=== PATIENT | female | born 1965 | race Caucasian/White ===

== ENCOUNTER 2017-06-15 07:01 | Day surgery (SDC) | payer BC ==
[~2017-06-15] VITALS: Ht 165.1 cm; Wt 68.0 kg
[2017-06-15] MEDS ORDERED: LASIX 40MG TABL40 MG PO (07:39)
[2017-06-15] MEDS ORDERED: ADDERALL20 MG PO (07:40)
[2017-06-15 08:24] VITALS: BP 128/95; TEMP 97.5
[2017-06-15 09:00] VITALS: BP 119/85; PULSE 77; TEMP 98
[2017-06-15 09:15] VITALS: BP 122/93; PULSE 73
[2017-06-15 09:30] VITALS: BP 115/86; PULSE 65
[2017-06-15 10:33] VITALS: BP 112/79; PULSE 79
== END 2017-06-15 09:45 | disposition home or self-care (01) ==
LOC: SDCO 07:01
DX: Z12.11 Encounter for screening for malignant neoplasm of colon (principal); Z80.42 Family history of malignant neoplasm of prostate; K64.0 First degree hemorrhoids; Z98.82 Breast implant status; I89.0 Lymphedema, not elsewhere classified; Z86.14 Personal history of Methicillin resistant Staphylococcus aureus infection; Z88.5 Allergy status to narcotic agent
CPT/HCPCS: OP; J2250; J2405; J3010; J7030

== ENCOUNTER 2018-11-18 18:12 | Emergency (ER) | payer BC ==
[~2018-11-18] VITALS: Ht 157.5 cm; Wt 69.5 kg
[~2018-11-18 18:12] MED LIST: ADDERALL20 MG PO; LASIX 40MG TABL40 MG PO
[2018-11-18 19:53] LABS: HEMATOCRIT 43.2 % (37.0-47.0); HEMOGLOBIN 14.6 g/dl (12.5-16.0); MEAN CELL VOLUME 92 fl (80.0-100.0); MEAN CORPUSCULAR HEMOGLOBIN 31 pg (27.0-31.0); MEAN CORPUSCULAR HGB CONC 34 g/dl (33.0-37.0); MEAN PLATELET VOLUME 10.3 fl (7.4-10.4); PLATELET COUNT 200 K/mm3 (130-400); REDCELL DISTRIBUTION WIDTH-CV 13.7 % (11.5-14.5)
[2018-11-18 20:09] LABS: BAND 1 % (0-10); LYMPHOCYTE 4 % (20.0-51.0); NEUTROPHILS 92 % (42.0-75.2); PLATELET ESTIMATE NORMAL (NORMAL)
[2018-11-18 20:10] LABS: HYPOCHROMIA 1+
[2018-11-18 20:14] LABS: ALBUMIN 4.4 gm/dL (3.5-5.0); BILIRUBIN,TOTAL 0.8 mg/dL (0.0-1.0); C-REACTIVE PROTEIN 1.1 mg/dL (0.0-0.9); CALCIUM 9.1 mg/dL (8.4-10.2); CREATININE, serum 0.73 (0.52-1.25); POTASSIUM 3.8 mmol/L (3.4-5.0); TOTAL PROTEIN 7.4 gm/dL (6.4-8.2)
[2018-11-18] MEDS ORDERED: CEPHALEXIN500 M1 PO (20:52)
[2018-11-18] MEDS ORDERED: SEPTRA DS 8001 TAB PO (20:52)
[2018-11-18] MEDS ORDERED: ULTRAM 50MG TAB50 MG PO (20:54)
[2018-11-18 21:11] VITALS: BP 103/86; PULSE 99; TEMP 98.4
== END 2018-11-18 21:10 | disposition home or self-care (01) ==
LOC: COL.ER 18:12
PROVIDERS: Emergency Medicine
DX: L03.116 Cellulitis of left lower limb (principal); Z90.89 Acquired absence of other organs
CPT/HCPCS: A4216; J0696; J1885; J2405; J3010; J7030

== ENCOUNTER → 2020-07-07 | Outpatient (CLI) | payer BC ==
[~2020-07-07] MED LIST changes: +AMOXICILLIN 8751 TAB PO; +BACTRIM DS 8001 TAB PO; +CEPHALEXIN500 M1 PO; +LEXAPRO20 MG PO; +SEPTRA DS 8001 TAB PO; +ULTRAM 50MG TAB50 MG PO; +VYVANSE60 MG PO
== END ==
LOC: MC.RAD 13:00
DX: Z12.31 Encounter for screening mammogram for malignant neoplasm of breast (principal); R92.0 Mammographic microcalcification found on diagnostic imaging of breast

== ENCOUNTER → 2020-07-11 | Outpatient (CLI) | payer BC | LOC: MC.RAD 11:00 | DX: R92.1 Mammographic calcification found on diagnostic imaging of breast (principal) ==

== ENCOUNTER 2020-09-22 13:45 | Outpatient (RCR) | payer BC ==
[~2020-09-22 13:45] MED LIST changes: -BACTRIM DS 8001 TAB PO; -LEXAPRO20 MG PO; -VYVANSE60 MG PO
== END 2020-11-30 ==
LOC: MKS.ESL.PT
DX: I89.0 Lymphedema, not elsewhere classified (principal); L03.116 Cellulitis of left lower limb

== ENCOUNTER → 2021-01-13 | Outpatient (CLI) | payer BC ==
[~2021-01-13] MED LIST changes: +BACTRIM DS 8001 TAB PO; +LEXAPRO20 MG PO; +VYVANSE60 MG PO
== END ==
LOC: MC.RAD 13:00
DX: R92.1 Mammographic calcification found on diagnostic imaging of breast (principal); R92.0 Mammographic microcalcification found on diagnostic imaging of breast

== ENCOUNTER 2021-01-30 06:40 | Emergency (ER) | payer BC ==
[~2021-01-30] VITALS: Ht 165.1 cm; Wt 70.5 kg
[~2021-01-30 06:40] MED LIST changes: -BACTRIM DS 8001 TAB PO; -LEXAPRO20 MG PO; -VYVANSE60 MG PO
[2021-01-30 06:54] VITALS: TEMP 98.6
[2021-01-30] MEDS ORDERED: VYVANSE60 MG PO (06:58)
[2021-01-30] MEDS ORDERED: LEXAPRO20 MG PO (06:59)
[2021-01-30] MEDS ORDERED: BACTRIM DS 8001 TAB PO (07:22)
[2021-01-30] MEDS ORDERED: CEPHALEXIN500 M1 PO (07:22)
[2021-01-30 07:57] LABS: HEMOGLOBIN 13.9 g/dl (12.5-16.0); MEAN CELL VOLUME 90 fl (80.0-100.0); MEAN CORPUSCULAR HEMOGLOBIN 31 pg (27.0-31.0); MEAN CORPUSCULAR HGB CONC 35 g/dl (33.0-37.0); MEAN PLATELET VOLUME 9.9 fl (7.4-10.4); PLATELET COUNT 220 K/mm3 (130-400); RED BLOOD COUNT 4.43 M/mm3 (4.10-5.30); REDCELL DISTRIBUTION WIDTH-CV 13.3 % (11.5-14.5)
[2021-01-30 08:13] LABS: ALBUMIN 3.5 gm/dL (3.5-5.0); BILIRUBIN,TOTAL 0.9 mg/dL (0.2-1.2); CALCIUM 8.9 mg/dL (8.4-10.2); CREATININE, serum 0.78 mg/dL (0.57-1.11); POTASSIUM 3.6 mmol/L (3.5-4.5); TOTAL PROTEIN 6.5 gm/dL (6.2-8.1)
[2021-01-30 08:53] LABS: BAND 18 % (0-10); LYMPHOCYTE 10 % (20.0-51.0); NEUTROPHILS 71 % (42.0-75.2); PLATELET ESTIMATE NORMAL (NORMAL)
[2021-01-30 08:58] LABS: COLLECTION METHOD CLEAN CATCH
[2021-01-30] MEDS ORDERED: ULTRAM 50MG TAB50 MG PO (09:02)
[2021-01-30 09:13] LABS: MUCOUS Present (NOT PRESENT); PH 6 (5-8); SQUAMOUS EPITHELIAL 0-2 /hpf (0-10); URINE APPEARANCE Hazy (CLEAR/HAZY); URINE BACTERIA None Seen (NONE SEEN); URINE BILIRUBIN Negative (NEGATIVE); URINE BLOOD Negative (NEGATIVE); URINE COLOR Yellow (YELLOW); URINE GLUCOSE Negative (NEGATIVE); URINE KETONE Trace (NEGATIVE); URINE LEUKOCYTE ESTERASE Negative (NEGATIVE); URINE NITRATE Negative (NEGATIVE); URINE PROTEIN(semi-quant) 1+ (NEGATIVE); URINE UROBILINOGEN Negative (NEGATIVE)
[2021-01-30 10:27] VITALS: BP 94/59; PULSE 81
== END 2021-01-30 10:31 | disposition home or self-care (01) ==
LOC: COL.ER 06:40
PROVIDERS: Emergency Medicine
DX: L03.116 Cellulitis of left lower limb (principal); L03.115 Cellulitis of right lower limb; I89.0 Lymphedema, not elsewhere classified; D72.829 Elevated white blood cell count, unspecified; Z98.890 Other specified postprocedural states; Z20.822 Contact with and (suspected) exposure to COVID-19; Z88.1 Allergy status to other antibiotic agents
CPT/HCPCS: J0696; J1885

== ENCOUNTER → 2021-10-05 | Outpatient (CLI) | payer OTHER ==
[~2021-10-05] MED LIST changes: +BACTRIM DS 8001 TAB PO; +LEXAPRO20 MG PO; +VYVANSE60 MG PO
== END ==
LOC: MC.RAD 07:15
DX: Z12.31 Encounter for screening mammogram for malignant neoplasm of breast (principal)

== ENCOUNTER 2023-12-29 16:46 | Emergency (ER) | payer SELFPAY ==
[~2023-12-29] VITALS: Ht 165.1 cm; Wt 69.5 kg
[2023-12-29 17:16] VITALS: TEMP 98.1
[2023-12-29] MEDS ORDERED: NS 1,000 ML IV ONE ×2 (17:45)
[2023-12-29 17:57] LABS: HEMATOCRIT 41.4 % (37.0-47.0); HEMOGLOBIN 14.2 g/dl (12.5-16.0); MEAN CELL VOLUME 91 fl (80.0-100.0); MEAN CORPUSCULAR HEMOGLOBIN 31 pg (27-31); MEAN CORPUSCULAR HGB CONC 34 g/dl (33.0-37.0); MEAN PLATELET VOLUME 10.2 fl (7.4-10.4); PLATELET COUNT 224 K/mm3 (130-400); RED BLOOD COUNT 4.56 M/mm3 (4.10-5.30); REDCELL DISTRIBUTION WIDTH-CV 14.1 % (11.5-14.5)
[2023-12-29 18:23] LABS: BILIRUBIN,TOTAL 0.8 mg/dL (0.2-1.2); CALCIUM 8.8 mg/dL (8.4-10.2); CREATININE, serum 0.82 mg/dL (0.57-1.11); POTASSIUM 3.7 mEq/L (3.5-4.5); TOTAL PROTEIN 6.1 g/dl (6.2-8.1)
[2023-12-29 18:34] LABS: BAND 42 % (0-10); LYMPHOCYTE 4 % (20.0-51.0); METAMYELOCYTE 10 % (0-0); NEUTROPHILS 44 % (42.0-75.2); PLATELET ESTIMATE NORMAL (NORMAL)
[2023-12-29] MEDS ORDERED: fentaNYL 50 MCG/ML 2 ML VIAL IV ONE (19:15)
[2023-12-29] MEDS ORDERED: CEPHALEXIN500 M1 PO (19:17)
[2023-12-29] MEDS ORDERED: NORCO 325 MG-51 TAB PO (19:17)
[2023-12-29] MEDS ORDERED: BACTRIM DS 8001 TAB PO (19:17)
[2023-12-29 19:50] VITALS: BP 85/50; PULSE 76
== END 2023-12-29 20:02 | disposition home or self-care (01) ==
LOC: COL.ER 16:46
PROVIDERS: Personal Emergency Response Attendant
DX: L03.116 Cellulitis of left lower limb (principal)
CPT/HCPCS: J3010; J3370; J7030; J7050

== ENCOUNTER 2023-12-30 11:46 | Inpatient (IN) | payer SELFPAY ==
[~2023-12-30] VITALS: Ht 165.1 cm; Wt 74.9 kg
[~2023-12-30 11:46] MED LIST changes: +NORCO 325 MG-51 TAB PO
[2023-12-30] MEDS ORDERED: NS 1,000 ML IV ONE (12:30)
[2023-12-30] MEDS ORDERED: cefTRIAXone 1 G in Water For Injection,Sterile 10 ML IV ONE (12:45)
[2023-12-30 13:00] VITALS: BP_SYST 98
[2023-12-30] MEDS ORDERED: Morphine 4 MG/ML VIAL IV ONE (13:00)
[2023-12-30 13:01] LABS: HEMATOCRIT 38.6 % (37.0-47.0); MEAN CELL VOLUME 92 fl (80.0-100.0); MEAN CORPUSCULAR HEMOGLOBIN 31 pg (27-31); MEAN CORPUSCULAR HGB CONC 34 g/dl (33.0-37.0); MEAN PLATELET VOLUME 10.2 fl (7.4-10.4); PLATELET COUNT 193 K/mm3 (130-400); RED BLOOD COUNT 4.18 M/mm3 (4.10-5.30); REDCELL DISTRIBUTION WIDTH-CV 14.6 % (11.5-14.5)
[2023-12-30 13:24] LABS: BAND 50 % (0-10); LYMPHOCYTE 3 % (20.0-51.0); NEUTROPHILS 44 % (42.0-75.2); PLATELET ESTIMATE NORMAL (NORMAL)
[2023-12-30 13:28] LABS: ALBUMIN 2.4 g/dL (3.5-5.0); BILIRUBIN,TOTAL 0.4 mg/dL (0.2-1.2); CALCIUM 8.5 mg/dL (8.4-10.2); CREATININE, serum 0.85 mg/dL (0.57-1.11); POTASSIUM 3.8 mEq/L (3.5-4.5); TOTAL PROTEIN 5.7 g/dl (6.2-8.1)
[2023-12-30 13:30] LABS: C-REACTIVE PROTEIN 33.27 mg/dL (0.00-0.50)
[2023-12-30] MEDS ORDERED: fentaNYL 50 MCG/ML 2 ML VIAL IV ONE (14:30)
[2023-12-30 14:39] VITALS: BP 98/66; PULSE 78; TEMP 97.8
--- NOTE | 2023-12-30 14:39 | NUR ---
PATIENT ARRIVED TO MEDICAL FLOOR AT [facility]. PATIENT IS ALERT AND ORIENTED.
--- NOTE | 2023-12-30 15:00 | NUR ---
PATIENT ABLE TO AMBULATE TO BED FROM ED CART. PATIENT IS ALERT AND ORIENTED. AND DAUGHTER AT BEDSIDE. INTAKE ASSESSMENT COMPLETE. PATIENT DOES NOT TAKE ANY HOME MEDICATIONS. PATIENT IS VEGITARIAN. PATIENT DENIES SKIN ISSUES, BESIDES BLE EDEMA. BLE ARE WARM TO TOUCH AND PATIENT C/O 5/10 PAIN AT THIS TIME. TOLERABLE PAIN IS 5/10. LOW FALL RISK UPON ASSESSMENT. DENIES FURTHER NEEDS OR CONCERNS AT THIS TIME.
[2023-12-30] MEDS ORDERED: Acetaminophen 325 MG TAB PO PRN (15:30)
[2023-12-30 15:47] VITALS: BP 90/50; PULSE 75; TEMP 98.5
[2023-12-30] MEDS ORDERED: Heparin 5,000 UNITS/ML 1 ML VIAL SQ SCH (16:00)
[2023-12-30 16:28] VITALS: BP_SYST 90
[2023-12-30] MEDS ORDERED: oxyCODONE 5 MG TAB PO PRN (18:00)
[2023-12-30 20:35] VITALS: BP 84/44; PULSE 81; TEMP 99.3
[2023-12-30] MEDS ORDERED: Acetaminophen 325 MG TAB PO SCH (21:00)
[2023-12-30] MEDS ORDERED: LR 500 ML IV ONE (21:45)
[2023-12-30 23:11] VITALS: BP 84/43; BP 96/61; PULSE 77; TEMP 98.2
[2023-12-31] VITALS (22 sets, daily range): BP systolic 76–105; BP diastolic 40–65; PULSE 70–76; TEMP 98.1–99.1
[2023-12-31 06:32] LABS: MEAN CELL VOLUME 92 fl (80.0-100.0); MEAN CORPUSCULAR HEMOGLOBIN 31 pg (27-31); MEAN CORPUSCULAR HGB CONC 34 g/dl (33.0-37.0); MEAN PLATELET VOLUME 10.9 fl (7.4-10.4); PLATELET COUNT 166 K/mm3 (130-400); RED BLOOD COUNT 3.85 M/mm3 (4.10-5.30); REDCELL DISTRIBUTION WIDTH-CV 14.5 % (11.5-14.5)
[2023-12-31 06:37] LABS: CALCIUM 8.5 mg/dL (8.4-10.2); CREATININE, serum 0.68 mg/dL (0.57-1.11)
[2023-12-31 06:40] LABS: HEMATOCRIT 35.4 % (37.0-47.0)
[2023-12-31 07:51] LABS: BAND 18 % (0-10); LYMPHOCYTE 12 % (20.0-51.0); NEUTROPHILS 69 % (42.0-75.2); PLATELET ESTIMATE NORMAL (NORMAL)
--- NOTE | 2023-12-31 08:12 | NUR ---
PATIENT RESTING IN BED, AWAKE, ALERT, AND ORIENTED. PATIENT C/O NAUSEA, AND REPORTS SHE IS UNABLE TO EAT HER BREAKFAST RIGHT NOW. THIS RN ADMINISTERS ZOFRAN ALONG WITH OTHER SCHEDULED MEDICATIONS. PATIENT ASKED IF BP WAS STILL LOW, SHE IS NEEDING SOMETHING STONGER FOR PAIN. THIS RN STATES THE BP IS STILL LOW, BUT WILL NOTIFY PHYSICIAN OF PAIN. PATIENT UNDERSTANDING. DENIES FURTHER NEEDS OR CONCERNS AT THIS TIME. CALL LIGHT WITHIN REACH.
--- NOTE | 2023-12-31 08:52 | NUR ---
SW met with patient to complete intake assessment and discuss discharge planning. Patient reports that she resides in [place] with Cristo Blevins [phone]. Patient reports that she is independent with ADLs and currently utilization of leg compression pumps at home, no other DMEs reported. Patient informed SW that her pharmacy of choice is [facility] ([facility]) and her PCP is Dr. Acevedo. Patient does not have DPOA on file and provided information about forms with hospital that are available- declined at this time. Discharge: home, pending any further medical recommendations.
[2023-12-31] MEDS ORDERED: Influenza Virus Vaccine, Trivalent '24-25 0.5 ML SYRINGE IM SCH (09:00)
[2023-12-31] MEDS ORDERED: cefTRIAXone 2 G in Water For Injection,Sterile 20 ML IV SCH (09:00)
[2023-12-31] MEDS ORDERED: NS 1,000 ML IV SCH ×2 (09:15→14:15)
[2023-12-31] MEDS ORDERED: Ibuprofen 400 MG TAB PO PRN (09:30)
[2023-12-31] MEDS ORDERED: NS 500 ML IV ONE (11:45)
--- NOTE | 2023-12-31 11:46 | NUR ---
THIS RN NOTIFIED DR IVERSON ABOUT BP OF 84/48. PATIENT IS ASYMPTOMATIC. PVORB FOR 500ML BOLUS OF NS.
--- NOTE | 2023-12-31 11:50 | NUR ---
THIS RN WAS NOTIFIED BY [facility] ABOUT POSITIVE PRELIMINARY BLOOD CULTURES, SENSITIVITY BEING DONE NOW. DR IVERSON NOTIFIED. NO NEW ORDERS AT THIS TIME
--- NOTE | 2023-12-31 12:32 | NUR ---
Data: Patient accepted spiritual care visit offered during Wheel Mill Operator rounds. Assessment: Positive attitude; hopeful; accepted prayer. Plan of Care: Wheel Mill Operator provided supportive listening and prayer. Chaplains will remain available as needed/requested while Patient is admitted to this hospital.
--- NOTE | 2023-12-31 12:58 | NUR ---
THIS RN CHECKED PATIENT'S BP AFTER 1L BOLUS. BP 76/40. PATIENT IS ASYMPTOMATIC, BUT IS C/O PAIN IN THE BLE. PATIENT PUT IN [place] POSITION. BP INCREASED TO 87/48. THIS RN NOTIFIED DESIGN SALES CONSULTANT WHO CALLED CAT CALL. HOUSE SUP AND ICU DESIGN SALES CONSULTANT AT BEDSIDE.
[2023-12-31] MEDS ORDERED: NS 1,000 ML IV ONE (13:15)
--- NOTE | 2023-12-31 13:19 | NUR ---
DR WHITING NOTIFIED. SEE NEW ORDERS
[2024-01-01] VITALS (13 sets, daily range): BP systolic 101–122; BP diastolic 64–74; PULSE 64–74; TEMP 97.9–99.2
[2024-01-01 06:20] LABS: HEMOGLOBIN 11.1 g/dl (12.5-16.0); MEAN CELL VOLUME 91 fl (80.0-100.0); MEAN CORPUSCULAR HEMOGLOBIN 31 pg (27-31); MEAN CORPUSCULAR HGB CONC 34 g/dl (33.0-37.0); MEAN PLATELET VOLUME 10.8 fl (7.4-10.4); PLATELET COUNT 178 K/mm3 (130-400); RED BLOOD COUNT 3.59 M/mm3 (4.10-5.30); REDCELL DISTRIBUTION WIDTH-CV 14.4 % (11.5-14.5)
[2024-01-01 06:26] LABS: HEMATOCRIT 32.6 % (37.0-47.0)
[2024-01-01 06:39] LABS: CALCIUM 8.1 mg/dL (8.4-10.2); CREATININE, serum 0.58 mg/dL (0.57-1.11); POTASSIUM 3.6 mEq/L (3.5-4.5)
--- NOTE | 2024-01-01 15:47 | NUR ---
PATIENT UP TO TAKE SHOWER. PATIENT'S BP HAS IMPROVED TODAY, WELL PAIN. ENZO HOSE APPLIED TO BLE. PATIENT REPORTS HER LEGS FEEL MUCH BETTER WITH THE ENZO HOSE ON. FAMILY AT BEDSIDE. IVF INFUSING PER MAR. DENIES FURTHER NEEDS OR CONCERNS AT THIS TIME.
[2024-01-02] VITALS (7 sets, daily range): BP systolic 108–146; BP diastolic 77–79; PULSE 66–72; TEMP 98.1–98.9
--- NOTE | 2024-01-02 06:55 | NUR ---
PT RESTING IN BED. PT IS ON RA. PT IS NOT ON TELE. PT IS AXOX4. PT HAS CALL LIGHT AND INSTRUCTED TO CALL WITH ALL NEEDS.
[2024-01-02 07:09] LABS: BASO % 0.1 % (0.0-2.0); EOS # 0.2 K/mm3 (0.0-0.7); EOS % 2.3 % (0.0-4.0); GRAN # 6.4 K/mm3 (1.4-6.5); GRAN % 75.6 % (42.2-75.2); HEMOGLOBIN 12.5 g/dl (12.5-16.0); LYMPH # 1.3 K/mm3 (1.2-3.4); LYMPH % 15.7 % (20.0-51.0); MEAN CELL VOLUME 90 fl (80.0-100.0); MEAN CORPUSCULAR HEMOGLOBIN 31 pg (27-31); MEAN CORPUSCULAR HGB CONC 35 g/dl (33.0-37.0); MEAN PLATELET VOLUME 10.7 fl (7.4-10.4); MONO # 0.4 K/mm3 (0.1-0.6); MONO % 5.1 % (1.7-9.3); PLATELET COUNT 229 K/mm3 (130-400); RED BLOOD COUNT 4.01 M/mm3 (4.10-5.30); REDCELL DISTRIBUTION WIDTH-CV 14.5 % (11.5-14.5)
[2024-01-02 07:10] LABS: HEMATOCRIT 36.1 % (37.0-47.0)
[2024-01-02 07:28] LABS: C-REACTIVE PROTEIN 14.66 mg/dL (0.00-0.50); CALCIUM 8.7 mg/dL (8.4-10.2); CREATININE, serum 0.6 mg/dL (0.57-1.11); POTASSIUM 3.6 mEq/L (3.5-4.5)
--- NOTE | 2024-01-02 09:54 | NUR ---
6310-PTS BLE/FEET VERY SWOLLEN AND TIGHT. PT STATES SHE HAS SOME NUMBNESS AND TINGLING IN FEET AND TOES AND WHEN SHE WALKS IT FEELS LIKE HER FEET ARE ASLEEP. WEDGE PLACED UNDER MATRESS AND FEET ELEVATED ON PILLOWS. ASKED PT ABOUT TEDS OR KANWAL WRAPPING HER LEGS TO HELP WITH SWELLING. PT STATES THEY ARE TOO TENDER FOR THAT RIGHT NOW. 0908-BETSY MCINTOSH NOTIFIED OF ABOVE.
[2024-01-02] MEDS ORDERED: Furosemide 40 MG/4 ML VIAL IV ONE (10:15)
--- NOTE | 2024-01-02 12:12 | NUR ---
SW attended clinical rounds. KVAITHA contacted financial counselor Kymberly to meet with patient to complete FAA due to patient being self pay. Kymberly notified SW that patient has [facility] marketplace insurance that is not in network with hospital. FAA completed. Patient continues to plan to return home at discharge. Discharge plan: Home
--- NOTE | 2024-01-02 15:20 | NUR ---
PATIENT GIVEN DISCHARGE INSTRUCTIONS AND EDUCAITON, ALL QUESTIOSN ANSWERED. PATIETNT VOICED UNDERSTANDING OF NEW MEDICATION.
--- NOTE | 2024-01-02 15:24 | NUR ---
PATIENT TAKEN VIA WHEELCHAIR BY PCT TO PATIENT ENTRANCE WHERE HE LEFT AWAKE AND ALERT AND IN STABLE CODNTION.
== END 2024-01-02 15:26 | disposition home or self-care (01) | DRG 603 ==
LOC: COL.ER 11:46 → MEDICAL 14:09
PROVIDERS: Nurse Practitioner; Physician Assistant; ADMIT Internal Medicine
DX: L03.116 Cellulitis of left lower limb (principal); R78.81 Bacteremia; L03.115 Cellulitis of right lower limb; I89.0 Lymphedema, not elsewhere classified; I95.9 Hypotension, unspecified
CPT/HCPCS: J0696; J1644; J1940; J2270; J3010; J7030; J7040; J7120